=== PATIENT | male | born 1965 | race African-American/Black ===

== ENCOUNTER 2017-04-14 19:39 | Emergency (ER) | payer BC, MEDICAID ==
[~2017-04-14 19:39] MED LIST: SUCCINYLCHOLINE CHLORIDE INJ 200 MG/10 ML VIAL ONE
[2017-04-14 19:54] LABS: ABSOLUTE EOSINOPHILS # (AUTO) 0.3 10^3/uL (0.0-0.6); ABSOLUTE LYMPHOCYTES (AUTO) 2.9 10^3/uL (0.5-4.7); ABSOLUTE MONOCYTES (AUTO) 0.6 10^3/uL (0.1-1.4); ABSOLUTE NEUT (AUTO) 4.5 10^3/uL (1.7-8.2); BASOPHILS % (AUTO) 0.6 % (0-2); EOSINOPHILS % (AUTO) 3.5 % (0-6); HEMATOCRIT 29.9 % (37.9-51.0); HEMOGLOBIN 9.7 g/dL (13.5-17.0); HGB HCT DIFFERENCE -0.8; LYMPHOCYTES % (AUTO) 34.8 % (13-45); MEAN CORPUSCULAR HEMOGLOBIN 28.1 pg (27.0-33.4); MEAN CORPUSCULAR HGB CONC 32.3 g/dL (32.0-36.0); MEAN CORPUSCULAR VOLUME 87 fl (80-97); MONOCYTES % (AUTO) 6.9 % (3-13); RED BLOOD COUNT 3.45 10^6/uL (4.35-5.55); RED CELL DISTRIBUTION WIDTH 15.6 % (11.5-14.0); SEGMENTED NEUTROPHILS % (AUTO) 54.2 % (42-78); WHITE BLOOD COUNT 8.2 10^3/uL (4.0-10.5)
[2017-04-14 19:59] LABS: PROTHROMBIN TIME 12.6 SEC (11.4-15.4)
[2017-04-14 20:00] LABS: PARTIAL THROMBOPLASTIN TIME 31.1 SEC (23.5-35.8)
[2017-04-14 20:13] LABS: ALANINE AMINOTRANSFERASE 30 U/L (21-72); ALBUMIN 4.2 g/dL (3.5-5.0); ALKALINE PHOSPHATASE 102 U/L (38-126); ANION GAP 14 (5-19); ASPARTATE AMINO TRANSFERASE 21 U/L (17-59); BILIRUBIN,DIRECT 0.4 mg/dL (0.0-0.4); BILIRUBIN,TOTAL 0.5 mg/dL (0.2-1.3); BLOOD UREA NITROGEN 18 mg/dL (7-20); CALCIUM 9.1 mg/dL (8.4-10.2); CARBON DIOXIDE 22 mmol/L (22-30); CHLORIDE 105 mmol/L (98-107); CREATINE KINASE 239 U/L (55-170); CREATININE RESULT 1.94 mg/dL (0.52-1.25); GLUCOSE 119 mg/dL (75-110); POTASSIUM 4.1 mmol/L (3.6-5.0); SODIUM 141.3 mmol/L (137-145); TOTAL PROTEIN 7.1 g/dL (6.3-8.2)
--- NOTE | 2017-04-14 20:16 | RADIOLOGY REPORT (SQ) ---
EXAM DESCRIPTION: CHEST SINGLE VIEW COMPLETED DATE/TIME: 04/14/2017 7:59 pm REASON FOR STUDY: unresponsive COMPARISON: None. NUMBER OF VIEWS: One view. TECHNIQUE: Single frontal radiographic image of the chest acquired. LIMITATIONS: None. FINDINGS: ENDOTRACHEAL TUBE: Appropriate location, 4.5 cm above the level of the loreta. . OTHER SUPPORT DEVICES: Nasogastric catheter tip is beyond the inferior margin of the image, likely ov erlying the body of the stomach. RADIOGRAPHIC FINDINGS: Left lower lobe subsegmental atelectasis. No significant effusion. No pneumo thorax. OTHER: No other significant finding. IMPRESSION: Tubes and lines in expected position.Left lower lobe subsegmental atelectasis. No signi ficant effusion. No pneumothorax. TECHNICAL DOCUMENTATION: JOB ID: [id number] [employer]- All Rights Reserved
--- NOTE | 2017-04-14 20:22 | ER Document Report ---
ED General - General Stated Complaint: DIFFICULTY BREATHING AND UNRESPONSE Time Seen by Provider: 04/14/17 19:40 Mode of Arrival: Medic Information source: Emergency Med Personnel Cannot obtain history due to: Altered mental status Notes: This is a 51-year-old man with no prior medical problems who is on no medicines who is brought in by EMS unresponsive. The patient was reportedly at his son's football practice Watching is a spectator by his car. Family states that he complained of blurry vision and then had slurred speech and then collapsed. EMS was called to the scene and they found the patient unresponsive with a blood pressure of 260/160. His fingerstick in the field was 91. His heart rate was noted to be irregular from 100 to the 40s. He was given 2-1/2 mg of Versed. On presentation to the ER, the was unresponsive, with agonal respirations. Patient has bilateral pinpoint pupils which are minimally responsive. - HPI Onset: Just prior to arrival Onset/Duration: Sudden Quality of pain: No pain Severity: None Pain Level: Denies Associated symptoms: Other - Blurry vision, slurred speech. The EKG Exacerbated by: Denies Relieved by: Denies Similar symptoms previously: No Recently seen / treated by doctor: No Past Medical History - General Information source: Emergency Med Personnel Cannot obtain history due to: Altered mental status - Social History Smoking Status: Unknown if Ever Smoked Cigarette use (# per day): No Chew tobacco use (# tins/day): No Smoking Education Provided: No Frequency of alcohol use: None Drug Abuse: None Lives with: Family Family History: Reviewed & Not Pertinent Patient has suicidal ideation: No Patient has homicidal ideation: No - Medical History Medical History: Negative Surgical Hx: Negative Review of Systems - Review of Systems Constitutional: denies: Chills, Fever EENT: No symptoms reported Cardiovascular: No symptoms reported Respiratory: No symptoms reported Gastrointestinal: No symptoms reported Genitourinary: No symptoms reported Male Genitourinary: No symptoms reported Musculoskeletal: No symptoms reported Skin: No symptoms reported Hematologic/Lymphatic: No symptoms reported Neurological/Psychological: See HPI Physical Exam - Vital signs Vitals: Pulse Ox 99 04/14/17 19:40 Notes: Physical exam: GENERAL: Unresponsive 51-year-old man. Patient has a nonrebreather with a nasal trumpet and oral airway (no gag). HEAD: Atraumatic, normocephalic. Eyes: Pinpoint pupils pupils equal round and reactive to light, extraocular movements intact, sclera anicteric, conjunctiva are normal. ENT: TMs normal, nares patent, oropharynx clear without exudates. Moist mucous membranes. NECK: Normal range of motion, supple without obvious mass or JVD. LUNGS: Breath sounds clear to auscultation bilaterally and equal. No wheezes rales or rhonchi. HEART: Regular rate and rhythm without murmurs, rubs or gallops. ABDOMEN: Soft, normoactive bowel sounds. No tenderness to palpation. No guarding, no rebound. No masses appreciated. EXTREMITIES: No pitting or edema. No clubbing or cyanosis. NEUROLOGICAL: Unresponsive with agonal breathing, pinpoint pupils that are equal in diameter and they do appear reactive to light, he does appear to localize to pain.Nasal trumpet SKIN: Warm, Dry, normal turgor, no rashes or lesions noted. Course - Re-evaluation Re-evalutation: 04/14/17 20:29 Patient was given IV lidocaine prior to intubation. Patient given 20 mg of etomidate at 120 mg of succinylcholine. Patient intubated. 04/14/17 20:44 I have spoken to the radiologist: Head CT shows 2.5 x 0.5 cm bleed within the carlotta. I discussed the case with Dr. Au of neurosurgery in [place]: He recommended continued blood pressure management and supportive care and that this is not a surgical issue at this time. 04/14/17 20:49 I discussed the case with Dr. Jackson of the neuro ICU at [place] who is willing to accept the patient. He did recommend trying to get the blood pressure down to a systolic of 140. The patient is currently on IV propofol and IV Versed for sedation, and IV nicardipine for blood pressure management. Our target goal will be a systolic blood pressure of 140. I have had a few conversations with the family members and they are aware that we are looking to transfer the patient to [place]. - Vital Signs Vital signs: Temp Pulse Resp BP Pulse Ox 99.9 F 110 H 16 171/109 H 100 04/14/17 21:31 04/14/17 21:00 04/14/17 21:31 04/14/17 21:31 04/14/17 21:30 - Laboratory Result Diagrams: 04/14/17 19:40 04/14/17 19:40 Laboratory results interpreted by me: 04/14/17 04/14/17 04/14/17 19:40 19:40 19:40 RBC 3.45 L Hgb 9.7 L Hct 29.9 L RDW 15.6 H VBG pH 7.29 L Creatinine 1.94 H Est GFR ( Amer) 44 L Est GFR (Non-Af Amer) 37 L Glucose 119 H Creatine Kinase 239 H Urine Protein 04/14/17 19:57 RBC Hgb Hct RDW VBG pH Creatinine Est GFR ( Amer) Est GFR (Non-Af Amer) Glucose Creatine Kinase Urine Protein 100 H - Diagnostic Test Radiology reviewed: Image reviewed, Reports reviewed - Chest x-ray shows good tube placement. CT of the head shows a intracranial bleed: 2.5 cm x 1.5 cm in the carlotta. - EKG Interpretation by Me Rate: Tachycardia Rhythm: NSR - EKG shows sinus tachycardia with a ventricular rate of 109, evidence of LVH. Procedures - Intubation Orotracheal Airway evaluation: Large tongue Mallampati Classification: Class 3 Medications: Lidocaine, Etomidate, Succinylcholine Intubation method: Orotracheal Blade size: 3 Equipment used: Glidescope ETT size: 7.5 ETT secured at: Gums ETT secured at (cm): 23 Breath Sounds after Intubation: Equal End tidal CO2 confirmed: Yes Ventilator settings: SIMV - Tidal volume 550, respiratory rate 16, PEEP of 5, pressure support 10, FiO2 100% Critical Care Note - Critical Care Note Total time excluding time spent on procedures (mins): 80 Discharge - Discharge Clinical Impression: Intracranial bleed, Hypertensive emergency Condition: Critical Disposition: [facility]
--- NOTE | 2017-04-14 20:22 | RADIOLOGY REPORT (SQ) ---
EXAM DESCRIPTION: CT HEAD WITHOUT COMPLETED DATE/TIME: 04/14/2017 8:09 pm REASON FOR STUDY: unresponsive COMPARISON: None. TECHNIQUE: Axial images acquired through the brain without intravenous contrast. Images reviewed wi th bone, brain and subdural windows. Images stored on PACS. All CT scanners at this facility use dose modulation, iterative reconstruction, and/or weight based d osing when appropriate to reduce radiation dose to as low as reasonably achievable (ALARA). [facility]: Dose Right [facility]: CareDose [facility]: Dose Right [facility]: Teradose 4D [facility]: [employer] RADIATION DOSE: Up-to-date CT equipment and radiation dose reduction techniques were employed. CTDIv ol: 64.6 mGy. DLP: 1163 mGy-cm. mGy. LIMITATIONS: None. FINDINGS: VENTRICLES: Normal size and contour. CEREBRUM: 2.5 x 1.5 cm intraparenchymal hemorrhage in the carlotta with mild adjacent mass effect.. No m idline shift. Normal plasencia/white matter differentiation. No areas of low density in the white matter. CEREBELLUM: 2.5 x 1.5 cm intraparenchymal hemorrhage in the carlotta with mild adjacent mass effect. EXTRAAXIAL SPACES: No fluid collections. No masses. ORBITS AND GLOBE: No intra- or extraconal masses. Normal contour of globe without masses. CALVARIUM: No fracture. PARANASAL SINUSES: No fluid or mucosal thickening. SOFT TISSUES: No mass or hematoma. OTHER: 2.5 x 1.5 cm intraparenchymal hemorrhage in the carlotta with mild adjacent mass effect. IMPRESSION: 2.5 x 1.5 cm intraparenchymal hemorrhage in the carlotta with mild adjacent mass effect. COMMENT: Results were communicated to Dr. Cannon at [address] Madrid. Results were confi rmed and read back. Quality ID # [id number]: Final reports with documentation of one or more dose reduction techniques (e.g., Au tomated exposure control, adjustment of the mA and/or kV according to patient size, use of iterative reconstruction technique) TECHNICAL DOCUMENTATION: JOB ID: [id number] .[employer]- All Rights Reserved
[2017-04-14 20:25] LABS: CREATINE KINASE MB 1.2 ng/mL (<4.55); TROPONIN I 0.013 ng/mL
[2017-04-14] MEDS ORDERED: NICARDIPINE HCL RTU, ISO-OS 20 MG/200 ML RTUINJ IV ONE (20:25)
[2017-04-14 20:26] LABS: URINE BARBITURATES SCREEN NEGATIVE; URINE METHADONE SCREEN NEGATIVE; URINE OPIATES LOW NEGATIVE; URINE PHENCYCLIDINE SCREEN NEGATIVE
--- NOTE | 2017-04-14 20:28 | RADIOLOGY REPORT (SQ) ---
EXAM DESCRIPTION: CT CERVICAL SPINE WITHOUT COMPLETED DATE/TIME: 04/14/2017 8:16 pm REASON FOR STUDY: ? fall and injury COMPARISON: None. TECHNIQUE: Axial images acquired through the cervical spine without intravenous contrast. Images re viewed with lung, soft tissue and bone windows. Reconstructed coronal and sagittal MPR images review ed. Images stored on PACS. All CT scanners at this facility use dose modulation, iterative reconstruction, and/or weight based d osing when appropriate to reduce radiation dose to as low as reasonably achievable (ALARA). [facility]: Dose Right [facility]: CareDose [facility]: Dose Right [facility]: Teradose 4D [facility]: Smart [employer] RADIATION DOSE: Up-to-date CT equipment and radiation dose reduction techniques were employed. CTDIv ol: 29.9 mGy. DLP: 1305 mGy-cm. mGy. LIMITATIONS: Moderate patient motion. FINDINGS: ALIGNMENT: Anatomic. MINERALIZATION: Normal. VERTEBRAL BODIES: No fractures or dislocation identified. DISCS: Multilevel disc space narrowing with osteophytes. FACETS, LATERAL MASSES, POSTERIOR ELEMENTS: Facet arthropathy. No fractures identified. No dislocat ion. No acute findings. HARDWARE: None in the spine. VISUALIZED RIBS: No fractures. LUNG APICES AND SOFT TISSUES: No significant or acute findings. OTHER: Endotracheal tube and nasogastric catheter are present. IMPRESSION: No fracture identified with moderate patient motion. TECHNICAL DOCUMENTATION: JOB ID: [id number] Quality ID # [id number]: Final reports with documentation of one or more dose reduction techniques (e.g., Au tomated exposure control, adjustment of the mA and/or kV according to patient size, use of iterative reconstruction technique) 2010 [employer]- All Rights Reserved
[2017-04-14] MEDS ORDERED: LORAZEPAM IV ONE (20:32)
[2017-04-14 20:34] LABS: APPEARANCE,URINE CLEAR; BILIRUBIN,URINE NEGATIVE (NEGATIVE); GLUCOSE, URINE NEGATIVE (NEGATIVE); KETONES,URINE NEGATIVE (NEGATIVE); LEUKOCYTE ESTERASE,URINE NEGATIVE (NEGATIVE); NITRITE,URINE NEGATIVE (NEGATIVE); PROTEIN,URINE 100 mg/dL (NEGATIVE); UROBILINOGEN,URINE NEGATIVE mg/dL (<2.0)
[2017-04-14] MEDS ORDERED: MIDAZOLAM HCL 100 ML IV ONE (20:34)
[2017-04-14] MEDS ORDERED: PROPOFOL 100 ML IV ONE (21:48)
[2017-04-14 21:59] LABS: VENOUS BLOOD BASE EXCESS -2.2 mmol/L; VENOUS BLOOD HCO3 24.7 mmol/L (20-32); VENOUS BLOOD PCO2 52.6 mmHg (35-63); VENOUS BLOOD PH 7.29 (7.30-7.42)
--- NOTE | 2017-04-14 22:50 | EKG REPORT ---
SEVERITY:- ABNORMAL ECG - SINUS TACHYCARDIA LEFT VENTRICULAR HYPERTROPHY BORDERLINE PROLONGED QT INTERVAL : Confirmed by: Doug Arauz MD 14-Apr-2017 22:49:41
[2017-04-14 22:52] VITALS: BP 260/137
== END 2017-04-14 22:13 | disposition short-term general hospital (02) ==
LOC: ER 19:39
PROC: 0BH17EZ Insertion of Endotracheal Airway into Trachea, Via Natural or Artificial Opening (ICD-10-PCS; principal; 2017-04-14)
DX: I61.3 Nontraumatic intracerebral hemorrhage in brain stem (principal); I16.1 Hypertensive emergency; I10 Essential (primary) hypertension; H53.8 Other visual disturbances; R47.81 Slurred speech
CPT/HCPCS: 93005; 99291; 99292; 51702; 36415; 82553; 80307 ×2; 82550; 85025; 85610; 85730; 80053; 81001; 84484; 82803; 71010; 70450; 72125; 93010; 31500; J0330